=== PATIENT | female | born 1995 | race Caucasian/White ===

== ENCOUNTER 2020-09-16 18:51 | Emergency (ER) | payer MEDICAID, OTHER ==
[~2020-09-16] VITALS: Ht 154.9 cm; Wt 39.0 kg
[2020-09-16 18:51] VITALS: BP 87/52
--- NOTE | 2020-09-16 18:52 | NUR ---
[facility] in ED - 09/16/20 at 1903 by MMTHEM Patient BIBA ALS accompanied by family, transferred to bed 12. RN evaluating the patient at bedside.
--- NOTE | 2020-09-16 18:52 | NUR ---
[facility] in ED - 09/16/20 at 1904 by MMTHEM Patient BIBA ALS accompanied by family, transferred to bed 12. RN evaluating the patient at bedside.
[2020-09-16] MEDS ORDERED: BACITRACIN OINT 500 UNITS/GM PKT TP ONE (18:55)
[2020-09-16] MEDS ORDERED: LIDOCAINE MPF 1% 10 MG/ML VIAL INJ ONE (18:55)
--- NOTE | 2020-09-16 19:04 | NUR ---
Patient BIBA ALS accompanied by family, transferred to bed 11. RN evaluating the patient at bedside.
--- NOTE | 2020-09-16 19:08 | NUR ---
Dr. Pearson is evaluating the patient at bedside.
--- NOTE | 2020-09-16 19:09 | NUR ---
25 YO F BIBA FROM HOME FOR LACERATION UNDER CHIN S/P SEIZURE 20 MIN AGO AT HOME. LACERATION APPROXIMATELY 2 INCHES, LINEAR, AND BLEEDING CONTROLLED. MOM REPORTS PT HIT HER CHIN ON TILE FLOOR. DENIES LOC, OR NAUSEA. PT TAKES KEPPRA, TOOK DOSE TODAY, LAST SEIZURE TWO DAYS AGO. NO ORAL OR HEAD TRAUMA, WEARS HELMET. NONVERBAL BASELINE. MED HX: MR, EPILEPSY NKA
--- NOTE | 2020-09-16 19:16 | NUR ---
TRANSFER OF CARE AT THIS TIME TO LORNA DIAS
--- NOTE | 2020-09-16 19:18 | NUR ---
Report received from LORNA Gray for continuation of care.
--- NOTE | 2020-09-16 19:20 | NUR ---
ERMD at bedside for suture administration.
[2020-09-16 19:45] VITALS: BP 87/52
--- NOTE | 2020-09-16 19:45 | NUR ---
Patient discharged with v/s stable. Written and verbal after care instructions given and explained to parent/guardian. Parent/Guardian verbalized understanding. Wheel Chair Assistedto car. All questions addressed prior to discharge. Advised to follow up with PMD.
== END 2020-09-16 19:45 | disposition home or self-care (01) ==
LOC: MED 18:51
DX: S01.81XA Laceration without foreign body of other part of head, initial encounter (principal); R56.9 Unspecified convulsions; X58.XXXA Exposure to other specified factors, initial encounter; Y93.89 Activity, other specified; Y92.89 Other specified places as the place of occurrence of the external cause; Y99.8 Other external cause status
CPT/HCPCS: 12013; 90471; 90715; 99283; J2001